=== PATIENT | female | born 1995 | race Hispanic/Latino ===

== ENCOUNTER 2018-08-13 15:35 | Emergency (ER) | payer SELFPAY ==
--- NOTE | 2018-08-13 17:02 | EDPHYS ---
Physician Documentation [facility] Name: Janette Cleveland Age: 23 yrs Sex: Female : 1995 Arrival Date: 08/13/2018 Time: 15:36 Bed 15 Private MD: out of town, doctor ED Physician Judd Hagan HPI: 08/13 16:09 This 23 yrs old Female presents to ER via Ambulatory with complaints of Ankle Injury. kb 16:09 The patient presents with an injury, pain, swelling, tenderness. The complaints affect kb the left ankle. Onset: The symptoms/episode began/occurred yesterday. Context: The problem was sustained outdoors, resulted from landed wrong while jumping on trampoline, The mechanism of injury involved inversion of the affected ankle. The patient can fully bear weight on the affected extremity. the patient is able to ambulate. Associated signs and symptoms: Pertinent positives: swelling, Pertinent negatives: calf tenderness, fever, nausea, numbness, rash, tingling, vomiting, warmth, weakness. Modifying factors: The symptoms are alleviated by nothing, the symptoms are aggravated by weight bearing, movement. Severity of symptoms: At their worst the symptoms were moderate, in the emergency department the symptoms are unchanged. The patient has not experienced similar symptoms in the past. The patient has not recently seen a physician. 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 - Social history:: Smoking status: Patient/guardian denies using tobacco. - Ebola Screening: : Patient denies travel to an Ebola-affected area in the 21 days before illness onset. ROS: 16:07 Constitutional: Negative for fever, chills, and weight loss, Cardiovascular: Negative kb for chest pain, palpitations, and edema, Respiratory: Negative for shortness of breath, cough, wheezing, and pleuritic chest pain, Abdomen/GI: Negative for abdominal pain, nausea, vomiting, diarrhea, and constipation, Skin: Negative for injury, rash, and discoloration, Neuro: Negative for headache, weakness, numbness, tingling, and seizure. 16:07 MS/extremity: Positive for injury or acute deformity, ecchymosis, pain, swelling, tenderness, of the left ankle. Exam: 16:07 Constitutional: This is a well developed, well nourished patient who is awake, alert, kb and in no acute distress. Head/Face: Normocephalic, atraumatic. Chest/axilla: Normal chest wall appearance and motion. Nontender with no deformity. No lesions are appreciated. Cardiovascular: Regular rate and rhythm with a normal S1 and S2. No gallops, murmurs, or rubs. Normal PMI, no JVD. No pulse deficits. Respiratory: Lungs have equal breath sounds bilaterally, clear to auscultation and percussion. No rales, rhonchi or wheezes noted. No increased work of breathing, no retractions or nasal flaring. Abdomen/GI: Soft, non-tender, with normal bowel sounds. No distension or tympany. No guarding or rebound. No evidence of tenderness throughout. Skin: Warm, dry with normal turgor. Normal color with no rashes, no lesions, and no evidence of cellulitis. Neuro: Awake and alert, GCS 15, oriented to person, place, time, and situation. Cranial nerves II-XII grossly intact. Motor strength 5/5 in all extremities. Sensory grossly intact. Cerebellar exam normal. Normal gait. 16:07 Musculoskeletal/extremity: Extremities: grossly normal except: noted in the left ankle: ecchymosis, pain, swelling, tenderness, ROM: limited active range of motion due to pain, in the left ankle, Circulation is intact in all extremities. Sensation intact. Weight bearing: able to fully bear weight. Vital Signs: 15:45 BP 117 / 74; Pulse 96; Resp 18; Temp 98.8; Pulse Ox 98% on R/A; Weight 104.33 kg (R); aj1 Height 5 ft. 1 in. (154.94 cm) (R); Pain 10/10; 16:45 BP 120 / 71; Pulse 85; Resp 17; Pulse Ox 99% on R/A; rb1 17:45 BP 122 / 69; Pulse 78; Resp 19; Pulse Ox 100% on R/A; rb1 15:45 Body Mass Index 43.46 (104.33 kg, 154.94 cm) aj1 MDM: 15:51 Patient medically screened. kb 16:08 Data reviewed: vital signs, nurses notes. Data interpreted: Pulse oximetry: on room air kb is 98 %. Interpretation: normal. 17:00 Counseling: I had a detailed discussion with the patient and/or guardian regarding: the kb historical points, exam findings, and any diagnostic results supporting the discharge/admit diagnosis, radiology results, the need for outpatient follow up, a orthopedic surgeon, to return to the emergency department if symptoms worsen or persist or if there are any questions or concerns that arise at home. 08/13 15:48 Order name: Ankle Left 3 View XRAY; Complete Time: 17:28 kb 08/13 16:58 Order name: Crutches; Complete Time: 17:17 kb 08/13 16:58 Order name: Short Leg Splint; Complete Time: 18:04 kb Administered Medications: No medications were administered Disposition: 08/13/18 17:01 Discharged to Home. Impression: Sprain of other ligament of left ankle. - Condition is Stable. - Discharge Instructions: Ankle Sprain, [id number]. - Prescriptions for Ibuprofen 800 mg Oral Tablet - take 1 tablet by ORAL route every 8 hours As needed take with food; 30 tablet. - Medication Reconciliation Form, Thank You Letter, Antibiotic Education, Prescription Opioid Use form. - Follow up: Emergency Department; When: As needed; Reason: Worsening of condition. Follow up: Private Physician; When: 2 - 3 days; Reason: Recheck today's complaints, Continuance of care, Re-evaluation by your physician. Addendum: 08/15/2018 10:29 Co-signature as Attending Physician, Judd Hagan MD. g s Signatures: Dispatcher [employer] EDCO Desirae Marte, BINDER TECHNICIAN-C BINDER TECHNICIAN-Radha Campa RN RN aj1 Johnna Veras RN RN ss Starr, Gregory, MD MD Corrections: (The following items were deleted from the chart) 08/13 18:05 17:01 08/13/2018 17:01 Discharged to Home. Impression: Sprain of other ligament of left ss ankle. Condition is Stable. Forms are Medication Reconciliation Form, Thank You Letter, Antibiotic Education, Prescription Opioid Use. Follow up: Emergency Department; When: As needed; Reason: Worsening of condition. Follow up: Private Physician; When: 2 - 3 days; Reason: Recheck today's complaints, Continuance of care, Re-evaluation by your physician. kb
--- NOTE | 2018-08-13 17:02 | ER ---
Nurse's Notes [facility] Name: Janette Cleveland Age: 23 yrs Sex: Female : 1995 Arrival Date: 08/13/2018 Time: 15:36 Bed 15 Private MD: out of town, doctor Diagnosis: Sprain of other ligament of left ankle Presentation: 08/13 15:43 Presenting complaint: Patient states: Yesterday she fell onto her left ankle when she aj1 was jumping on the trampoline and she heard a cracking sound. Today the swelling and bruising is worse, and she is still having a lot of pain. Transition of care: patient was not received from another setting of care. Onset of symptoms was August 12, 2017. Risk Assessment: Do you want to hurt yourself or someone else? Patient reports no desire to harm self or others. Initial Sepsis Screen: Does the patient meet any 2 criteria? No. Patient's initial sepsis screen is negative. Does the patient have a suspected source of infection? No. Patient's initial sepsis screen is negative. Care prior to arrival: None. 15:43 Method Of Arrival: Ambulatory aj 15:43 Acuity: TIFFANIE 4 aj1 Triage Assessment: 15:45 General: Appears in no apparent distress. Behavior is calm, cooperative, appropriate aj1 for age. Pain: Complains of pain in left ankle Pain currently is 10 out of 10 on a pain scale. Neuro: Level of Consciousness is awake, alert, obeys commands. Cardiovascular: Patient's skin is warm and dry. Respiratory: Airway is patent Respiratory effort is even, unlabored, Respiratory pattern is regular, symmetrical. Musculoskeletal: Range of motion: limited in left ankle. 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 - Social history:: Smoking status: Patient/guardian denies using tobacco. - Ebola Screening: : Patient denies travel to an Ebola-affected area in the 21 days before illness onset. Screenin:50 Abuse screen: Denies threats or abuse. Nutritional screening: No deficits noted. rb1 Tuberculosis screening: No symptoms or risk factors identified. Fall Risk None identified. Assessment: 15:50 General: Appears uncomfortable, Behavior is calm, cooperative. Pain: Complains of pain rb1 in left ankle Pain currently is 8 out of 10 on a pain scale. Pain: Pain began 1 day ago. Neuro: Level of Consciousness is awake, alert, obeys commands, Oriented to person, place, time, situation. Cardiovascular: Capillary refill < 3 seconds is brisk in bilateral toes. Respiratory: Airway is patent Respiratory effort is even, unlabored, Respiratory pattern is regular, symmetrical. GI: No signs and/or symptoms were reported involving the gastrointestinal system. : No signs and/or symptoms were reported regarding the genitourinary system. Derm: Bruising that is dark purple, on left ankle. Musculoskeletal: Range of motion: limited in left ankle Swelling present in left ankle. Injury Description: Jumping on the trampoline. 16:50 Reassessment: Patient appears in no apparent distress at this time. No changes from rb1 previously documented assessment. 17:50 Reassessment: Patient appears in no apparent distress at this time. Patient and/or rb1 family updated on plan of care and expected duration. Pain level reassessed. Patient is alert, oriented x 3, equal unlabored respirations, skin warm/dry/pink. 17:55 Reassessment: Valeriy at bedside applying the splint. rb1 18:05 Reassessment: Discharge pending due to splint drying and setting. rb1 Vital Signs: 15:45 BP 117 / 74; Pulse 96; Resp 18; Temp 98.8; Pulse Ox 98% on R/A; Weight 104.33 kg (R); aj1 Height 5 ft. 1 in. (154.94 cm) (R); Pain 10/10; 16:45 BP 120 / 71; Pulse 85; Resp 17; Pulse Ox 99% on R/A; rb1 17:45 BP 122 / 69; Pulse 78; Resp 19; Pulse Ox 100% on R/A; rb1 15:45 Body Mass Index 43.46 (104.33 kg, 154.94 cm) aj1 ED Course: 15:36 Patient arrived in ED. sb2 15:37 out of town, doctor is Private Physician. sb2 15:45 Triage completed. aj1 15:45 Arm band placed on Patient placed in an exam room. aj1 15:47 Desirae Marte FNP-C is [facility]. kb 15:47 Judd Hagan MD is Attending Physician. kb 15:50 Patient has correct armband on for positive identification. Bed in low position. Call rb1 light in reach. Side rails up X 1. Pulse ox on. NIBP on. 16:01 Nadia Contreras, RN is Primary Nurse. rb1 16:49 X-ray completed. Portable x-ray completed in exam room. Patient tolerated procedure la2 well. 17:13 Ankle Left 3 View XRAY In Process Unspecified. EDMS 18:04 No provider procedures requiring assistance completed. Patient did not have IV access ss during this emergency room visit. 18:04 No provider procedures requiring assistance completed. Patient did not have IV access rb1 during this emergency room visit. Administered Medications: No medications were administered Outcome: 17:01 Discharge ordered by MD. kb 18:04 Discharged to home with crutches, with family. ss 18:04 Condition: good 18:04 Discharge instructions given to patient, family, Instructed on discharge instructions, follow up and referral plans. medication usage, Demonstrated understanding of instructions, follow-up care, medications, Prescriptions given X 1. 18:05 Patient left the ED. ss Signatures: Dispatcher [employer] EDOR Desirae Marte FNP-C FNP-Radha Campa RN RN aj1 Johnna Veras RN RN ss Nadia Contreras, RN RN rb1 Bernice Peña la2 Magdalena Zimmerman sb2
--- NOTE | 2018-08-13 17:21 | RAD REPORT ---
EXAM DESCRIPTION: RAD - Ankle Left 3 View - 08/13/2018 5:13 pm CLINICAL HISTORY: PAIN COMPARISON: No comparisons FINDINGS: [id number] soft tissue swelling is seen along the left distal fibula. No fracture or dislocation seen. Prominent plantar calcaneal spur.
== END 2018-08-13 18:05 | disposition home or self-care (01) ==
LOC: ER 15:35
DX: S93.492A Sprain of other ligament of left ankle, initial encounter (principal); W17.89XA Other fall from one level to another, initial encounter; Y93.44 Activity, trampolining; Y92.89 Other specified places as the place of occurrence of the external cause
CPT/HCPCS: 99283